=== PATIENT | female | born 2000 | race Caucasian/White ===

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

== ENCOUNTER → 2022-04-06 | Outpatient (CLI) | payer MEDICAID ==
[~2022-04-06] MED LIST changes: +CEPH-507 PO
--- NOTE | 2022-04-06 18:16 | Diagnostic Imaging Report ---
INDICATION: patient, survey. TECHNIQUE: Multiple real-time grayscale images were obtained over the gravid uterus. COMPARISON: None. FINDINGS: A single live intrauterine fetus is seen measuring at 18 weeks 6 days by composite measurements. Fetus is in breech presentation. Sonographic EDC is 09/01/2022. Placenta is anterior with no evidence of previa. heart rate is 156 BPM. Cervical length is 5.5 cm. Distance from the internal os to the placental tip was 4.7 cm. There is no evidence of abruption. Maternal adnexa were not well seen. survey showed normal-appearing kidneys and bladder. Normal-appearing stomach was seen. Four-chamber heart view appeared normal. Three-vessel cord appeared normal. Views of the spine were normal. The intracranial ventricles were not well seen due to position, cord insertion was not well seen. Biometrical measurements are as follows: Biparietal 4.05 cm, age 18 weeks 3 days. Head circumference 15.61 cm, age 18 weeks 4 days. Abdominal circumference 14.16 cm, age 19 weeks 4 days. Femur length 2.76 cm, age 18 weeks 4 days. Sonographic estimate age: 18 weeks 6 days. Sonographic estimated date of delivery: 09/01/2022. Estimated Weight: 266 gm (+/- 39 gm). LMP percentile: 42%. heart rate: 156 beats per minute. number: 1 of 1. IMPRESSION: Single live intrauterine fetus measuring 18 weeks 6 days in size with no detectable abnormality. The intracranial structures and cord insertion were not well seen on the survey, consider limited follow-up, as clinically warranted. Dictated by: Dictated on workstation # [id number]
== END ==
LOC: RAD 14:55
PROVIDERS: ATTEND Obstetrics & Gynecology
DX: Z34.02 Encounter for supervision of normal first pregnancy, second trimester (principal); Z3A.18 18 weeks gestation of pregnancy
CPT/HCPCS: 76805